=== PATIENT | female | born 1980 | race Caucasian/White ===

== ENCOUNTER 2023-11-07 05:39 | Observation (INO) ==
--- NOTE | 2023-10-28 15:13 | Anesthesiology Consultation ---
Date of Service October 28, 2023 Assessment & Plan (1) Encounter for pre-operative examination: Chart Review Chart Review: Acceptable Risk for Surgery and Patient NOT seen in Pre Admission Testing - Check test AM DOS -Infectious Disease screening: Per PAT nursing assessment on 10/21/23. No known infectious disease contacts in past 10 days or current infectious disease symptoms. No recent travel outside the country. History Surgery Operation Date: 11/07/23 07:30 Proposed Procedures p Panniculectomy - Esme Lopez MD Height/Weight Height: 5 ft 5 in Weight: 83.007 kg Allergies Allergy/AdvReac Type Severity Reaction Status Date / Time mometasone furoate AdvReac Severe NON STOP Verified 10/21/23 14:56 [From Nasonex] HEADACHES aspirin AdvReac Intermediate Gastrointestinal Verified 10/21/23 14:57 Upset diclofenac AdvReac Intermediate Diarrhea Verified 10/21/23 14:56 Medications Home Medications Medication Instructions Recorded Confirmed Last Taken nzmxbhoszn-euayqnqboqovz-dzbpwzav 1 tab PO Q4H PRN Migraine Headache 09/08/20 10/21/23 Unknown 50 mg-325 mg-40 mg tablet calcium-vitamin D2-iron tablet 1 tab PO DAILY 09/08/20 10/21/23 09/08/20 fluticasone propionate 50 2 spray intranasal HS 09/08/20 10/21/23 09/08/20 mcg/actuation nasal spray,suspension magnesium oxide 400 mg (241.3 mg 400 mg PO DAILY 09/08/20 10/21/23 09/08/20 magnesium) tablet nortriptyline 25 mg capsule 50 mg PO HS 09/08/20 10/21/23 09/07/20 vit no.95-ferrous 1 tab PO DAILY 09/08/20 10/21/23 09/08/20 fumarate 28 mg-folic acid 800 mcg tablet () promethazine 25 mg tablet 25 mg PO Q8H PRN Nausea 09/08/20 10/21/23 Unknown buspirone 10 mg tablet 10 mg PO BID 07/14/23 10/21/23 Unknown clobetasol 0.05 % scalp solution 1 applic topical DAILY 07/14/23 10/21/23 Unknown folic acid 1 mg tablet 1 mg PO DAILY 07/14/23 10/21/23 Unknown levocetirizine 5 mg tablet 5 mg PO DAILY 07/14/23 10/21/23 Unknown medroxyprogesterone 150 mg/mL 150 mg IM UD 10/21/23 10/21/23 Unknown intramuscular suspension oxycodone-acetaminophen 5 mg-325 1 tab PO Q4H PRN pain 3 days #18 10/25/23 10/25/23 Unknown mg tablet (Percocet) tabs Past Medical History Medical History Anxiety History of COVID-September 12, 2023 > home test, symptoms all resolved > mild symptoms just loss taste and smell Migraine average 2 per month Seasonal allergies Past Family History Family History Other Alzheimer disease Diabetes Hypotonic sclerotic muscular dystrophy Stroke Past Surgical History Surgical History delivery delivered x1 Hx of gastric bypass 2009 Social History Smoking Status: Never smoker Do You Dip or Chew Tobacco: No Hx Alcohol Use: Yes alcohol intake frequency: holidays/special occasions only Hx Substance Use: No substance use type: does not use Lab Results Anesthesia Preop Results Results Anesthesia Widget: WBC 3.72 K/ul (4.8-10.8) L 10/28/23 Hgb 12.3 g/dl (12.0-16.0) 10/28/23 Hct 36.9 % (37.0-47.0) L 10/28/23 Plt 304 K/uL (130-400) 10/28/23 Na 138 mmol/L (136-145) 10/28/23 K 4.0 mmol/L (3.5-5.1) 10/28/23 Cl 105 mmol/L (98-107) 10/28/23 CO2 26 mmol/L (21-32) 10/28/23 BUN 11 mg/dl (6-23) 10/28/23 Creat 0.61 mg/dl (0.6-1.2) 10/28/23 Glucose Level 92 mg/dl (70-99(Fasting)) 10/28/23 PT 10.6 Seconds (9.0-12.0) 10/28/23 INR 1.0 (0.9-1.1) 10/28/23
--- OUTSIDE RECORDS SUMMARY | 2023-11-07 05:48 | External Medical Summary | Summary of Care ---
Author Name Unknown Organization [facility] Address [address] [place] [address] Phone [phone] Care Team Providers Care Check And Transfer Beader Name Role Phone Osmani Valeria Jong LE Primary Care Provider [phone] Encounter Details Date Type Department Care Team (Late st Contact Info) Description 10/28/2023 9:30 AM EDT Nurse Only Ancillary Department, [facility] [address] [place] [address] [facility], Nurse [address] [place] [address] Arrived Allergies Active Allergy Reactions Criticality Noted Date Comments Aspirin 04/17/2020 Burning in stomach Diclofenac Sodium Diarrhea 06/04/2008 Mometasone Furoate 06/14/2013 Nosebleeds and headaches documented as of this encounter (statuses as of 10/28/2023) Medications Medication Sig Dispensed Refills Start Date End Date Status FORMULA 28-0.8 MG PO TABS twice a day 0 Active CALCIUM CITRATE PLUS PO TABS two tablets twice a day 0 Active Promethazine HCl 25 MG Oral Tablet (PHENERGAN)Indication s:Migraine with aura and without status migrainosus, not intractable Take 1 Tab by mouth every 8 hours as needed for Nausea. 20 Tab 1 04/17/2020 Active Clobetasol Propionate 0.05 % External Cream (Temovate)Indications :Bumps on skin Apply topically to affected area 2 times a day . Start 3 days before menses due - cover with hot compresses and set for 10 minutes. 60 g 1 04/27/2022 Active Levocetirizine Dihydrochloride 5 MG Oral TabletIndications:Cou gh TAKE 1 TABLET BY MOUTH EVERYDAY AT BEDTIME 90 Tablet 3 11/18/2022 Active busPIRone HCl 10 MG Oral Tablet (Buspar)Indications:G AD (generalized anxiety disorder) One half to one whole tab by mouth up to 4 times a day as needed for anxiety. 20 Tablet 0 12/23/2022 Active Fluticasone Propionate 50 MCG/ACT Nasal Suspension (Flonase)Indications: Post-nasal drip ADMINISTER 2 SPRAYS INTO EACH NOSTRIL DAILY. 48 mL 3 02/28/2023 Active Nortriptyline HCl 25 MG Oral Capsule (Pamelor)Indications: Migraine with aura and without status migrainosus, not intractable TAKE 2 CAPSULES BY MOUTH AT BEDTIME 180 Capsule 2 02/28/2023 Active Jaleesa 0.25-35 MG-MCG Oral Tablet (Norgestimate-Eth Estradiol)Indications :Irregular menses TAKE 1 TABLET BY MOUTH EVERY DAY IN THE MORNING 84 Tablet 1 03/15/2023 Active Magnesium Oxide 400 MG Oral TabletIndications:Pawan jim with aura and without status migrainosus, not intractable,[facility] Take 1 Tablet by mouth in the morning. 90 Tablet 3 05/05/2023 Active Folic Acid 1 MG Oral TabletIndications:Bradford r loss TAKE 1 TABLET BY MOUTH EVERY DAY IN THE MORNING 90 Tablet 3 05/29/2023 Active Ytmgnjliye-LVVB-Ftpqg ine 50-325-40 MG Oral Tablet (Fioricet) TAKE 1 TAB BY MOUTH EVERY 4 HOURS NEEDED FOR PAIN, MODERATE. *INSURANCE COVERS 20 TABS/34 DAYS* 20 Tablet 2 10/20/2023 Active Hospital, Clinic, or Other Facility Administered Medication Ordered Dose Route Frequency Start Date End Date Status medroxyPROGESTERone (contracep) (Depo-Provera) inj 150 mgIndications:Depo-Provera contraceptive status 150 mg IM [id number] 05/05/2023 04/29/2024 Acti ve vitamin b-12 (Cyanocobalamin) inj 1,000 mcgIndications:Intestinal postoperative nonabsorption 1000 mcg IM [id number] 10/28/2023 09/29/19 25 Active documented as of this encounter (statuses as of 10/28/2023) Active Problems Problem Noted Date Diagnosed Date MEDICATION USE AGREEMENT 12/16/2016 Overview: Managed by Dr. Valeria Keen. To view the Medication Usage Agreement, go to Action, Patient Files. Intestinal postoperative nonabsorption 0 Other hyperalimentation 01/13/2009 TUCKER RESEARCH OTHER*[id number] 01/13/2009 ADVANCE DIRECTIVE INFORMATION 09/17/2008 Overview: No, Advance Directive brochure given to patient. 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 Morbid obesity, BMI not known 05/13/2008 10/06/2009 Overview: Per Obesity Taxonomy Migraine 12/16/2016 Morbid Obesity, BMI not known 10/06/2009 Overview: Per Obesity Taxonomy OTHER 12/13/2016 Overview: Ocular albinism, legally blind documented as of this encounter (statuses as of 10/28/2023) Immunizations Name Administration Dates Next Due COVID-19 mRNA, LNP-s, No Pre serve, 2-Dose Series (Moderna) 12/25/2020,11/27/2020 PPD 03/25/2015 Seasonal Influenza, PF, 6 M & above, IM , (FluLaval or Fluzone) 04/27/2022,04/17/2020,04/18/2019,2017 Seasonal Influenza, Quadriva lent, No Preserve, IM 04/23/2021,03/23/2016 Seasonal Influenza, Split, I IV3, With Preserve, Inj 03/25/2015,03/13/2014 TD, Preservative Free 01/10/2020 TDAP (age 11 and older)(Adacel) 01/08/2010 documented as of this encounter Social History Tobacco Use Types Packs/Day Years Used Date Smoking Tobacco: Former Cigarettes Smokeless Tobacco: Never Alcohol Use Standard Drinks/Week Comments Not Currently 0 (1 standard drink = 0.6 oz pur e alcohol) ocassionally PHQ-2 Answer Date Recorded PHQ-2 Score 0 02/20/2019 Hunger Vital Sign Answer Date Recorded Within the past 12 months, y ou worried that your food would run out before you got the money to buy more. Never true 01/25/20 23 Within the past 12 months, t he food you bought just didn't last and you didn't have money to get more. Never true 01/24/2023 Sex and Gender Information Value Date Recorded Sex Assigned at Female 10/09/2022 7:33 PM EDT Gender Identity Female 10/09/2022 7:33 PM EDT Sexual Orientation Straight 10/09/2022 7: 33 PM EDT Job Start Date Occupation Industry Not on file Not on file Not on file documented as of this encounter Progress Notes * Piper Joseph LPN - 10/28/2023 9:16 AM EDT Pre-Administration Time Out Procedure Performed: Yes Patient Identified (Ask Name/Date of ): Yes Does the patient have a fever greater than 101 degrees today? No Patient allergic to latex? No Has the patient ever fainted after receiving an injection? No VFC Stock: No Injection(s) verified: Yes, Injection Name: DEPO and B-12 Verified Side and Site: Yes Verified Shot(s) with Parent(s)/Patient: Yes documented in this encounter Plan of Treatment Health Maintenance Due Date Last Done Comments Hepatitis B (1 of 3 - 19+ 3-dose series) 2001 Depression Screening 02/21/2020 02/20/2019 COVID-19 Vaccine (3 - 2022-24 season) 2023 12/25/2020, 11/27/2020 Influenza Vaccine (FLU shot) (Season Ended) 2024 04/27/2022, 04/23/2021, 04/17/2020, Additional history exists Mammogram 03/15/2024 03/15/2023, 03/15/2023 Diabetes Screening 10/12/2025 10/12/2022, 0 10/21/2021, 10/21/2021, Additional history exists Pap Smear 05/05/2026 05/05/2023, 01/09, 02/20/2018, Additional history exists Cervical Cancer Screening 05/05/2028 HPV/Co-Test 05/05/2028 05/05/2023 Lipid Panel 05/13/2028 05/13/2023, 01/09, 12/27/2013, Additional history exists DTaP,Tdap,and Td Vaccines (3 - Td or Tdap) 01/09/2030 01/10/2020, 01/08/2010 GARDASIL-HPV IMMUNIZATION SERIES Aged Out No longer eligible based on patient's age to complete this topic MENINGOCOCCAL (MENACTRA/MENVEO) Aged Out No longer eligible based on patient's age to complete this topic Pneumococcal Vaccine: Pediatrics (0 to 5 Years) and At-Risk Patients (6 to 64 Years) Aged Out No longer eligible based on patient's age to complete this topic documented as of this encounter Medical Devices Not on filedocumented as of this encounter Visit Diagnoses Diagnosis 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 B12 deficiency Other B-complex deficiencies documented in this encounter Administered Medications Active Administered Medications - up to 3 most recent administrations Medication Order MAR Action Action Date Dose Rate Site medroxyPROGESTERone (contracep) (Depo-Provera) inj 150 mg 150 mg, Intramuscular, [id number], 4 doses, First dose on Chapis 05/05/23 at 1200, Last dose on 01/30/24 at 1200 Given 10/28/2023 9:15 AM EDT 150 mg Dorsogluteal Right Given 08/05/2023 9:59 AM EST 150 mg Do rsogluteal Left Given 05/13/2023 10:40 AM EDT 150 mg D orsogluteal Left vitamin b-12 (Cyanocobalamin) inj 1,000 mcg 1,000 mcg, Intramuscular, [id number], First dose on Tue10/28/23 at 0945, Last dose on Tue08/31/24 at 0945, For 12 doses Given 10/28/2023 9:14 AM EDT 1,000 mcg Deltoid Right Upper documented in this encounter Advance Directives Latest Code Status on File Code Status Date Activated Date Inactivated Comments Full Code 04/10/2010 12:22 PM 04/11/2010 9:48 PM This order reflects the patients wishes and were consensually agreed upon. Code Status History Code Status Date Activated Date Inactivated Comments Full Code 04/10/2010 7:28 AM 04/10/2010 12:22 PM This order reflects the patients wishes and were consensually agreed upon. Care Teams Check And Transfer Beader Relationship Specialty Start Date End Date Valeria Keen DO [address] [place] [address] PCP - General Family Medicine 01/18/12 documented as of this encounter
[2023-11-07] MEDS: LR 15ML/HR IV SCH (06:34)
[2023-11-07] MEDS ORDERED: ePHEDrine sulfate 50 MG/ML AMP IV PRN ×2 (06:45→10:58)
[2023-11-07] MEDS ORDERED: ROCURONIUM BROMIDE 10 MG/ML 5 ML VIAL IV ONE (06:45)
[2023-11-07] MEDS ORDERED: ONDANSETRON INJ 2 MG/ML 2 ML VIAL IV PRN (06:45)
[2023-11-07] MEDS ORDERED: PROPOFOL IV EMULSION 10 MG/ML 20 ML VIAL IV ONE (06:45)
[2023-11-07] MEDS ORDERED: ATROPINE SULFATE 0.1 MG/ML 10ML SYR IV PRN ×2 (06:45→10:58)
[2023-11-07] MEDS ORDERED: ONDANSETRON INJ 2 MG/ML 2 ML VIAL ONE (06:45)
[2023-11-07] MEDS ORDERED: fentaNYL citrate PF 100 MCG/2 ML VIAL IV PRN (06:45)
[2023-11-07] MEDS ORDERED: MIDAZOLAM HCL 1 MG/ML 2ML VIAL ONE (06:45)
--- NOTE | 2023-11-07 06:45 | History & Physical Bridge Note ---
Date of Service November 07, 2023 History & Physical Bridge Note I have examined the patient, reviewed the History & Physical and in the interval since the performance of the History & Physical I have noted the following changes of clinical significance: no changes noted
[2023-11-07] MEDS ORDERED: fentaNYL citrate PF 100 MCG/2 ML VIAL ONE (06:46)
[2023-11-07] MEDS ORDERED: SUGAMMADEX SODIUM 200 MG/2 ML VIAL IV ONE (06:46)
[2023-11-07] MEDS: ceFAZolin 2000MG 2,000 MG/15 ML SYR IV SCH ×2 (07:55→16:54)
[2023-11-07] MEDS: TRANEXAMIC ACID 1,000 MG **IV Intra-op IV SCH (08:05)
[2023-11-07] MEDS ORDERED: HYDROmorphone INJ 1 MG/ML SYRINGE ONE ×2 (08:08→09:15)
[2023-11-07] MEDS: LIDOCAINE 1% LOCAL 20 ML VIAL ONE (08:49)
[2023-11-07] MEDS: EpINEphrine HCL INJ 1 MG/ML 1ML SYRINGE IR ONE (08:49)
[2023-11-07] MEDS: LIDOCAINE 1%/EPINEPHRINE 1:100,000 20 ML VIAL ONE (09:28)
[2023-11-07] MEDS: BUPIVACAINE 0.25% PF 30 ML VIAL ONE (09:28)
[2023-11-07] MEDS ORDERED: ACETAMINOPHEN 1000 MG/100 ML IV IV ONE (09:37)
[2023-11-07] MEDS: TRANEXAMIC ACID 1,000 MG **IV Pre-op IV SCH (09:38)
--- NOTE | 2023-11-07 10:31 | Operative Report ---
PG Post Operative Report Pre & Post Diagnosis Operation Date: 11/07/23 07:30 Pre-Op Diagnosis: Abdominal Pannus Post-Op Diagnosis: Abdominal Pannus I identified the patient and participated in the time-out.: Yes Procedure Operation Date: 11/07/23 07:30 Actual Procedures p Panniculectomy(Not Applicable) - Esme Lopez MD Surgeon Esme Lopez MD Air Brake Adjuster Delores Del Rosario PA-C Estimated Blood Loss 15 Findings See Below small fascial weakness right abdomen at lateral aspect of pfannenstiel incision (1 cm) Specimens abdominal pannus Drains [id number] Anesthesia Type General Complications none Indications abdominal pannus, intertrigo Description of Procedure Risks, benefits, and alternatives of the procedure were explained to the patient who agreed and signed consent. She was identified and marked in the preoperative holding area. She was brought to the operating room where she was positioned supine and placed under general anesthesia without incident. Amado catheter was placed. Surgical site was prepped and draped sterilely. A time-out procedure was performed. I reassessed my markings which included a lower horizontal abdominal incision with the midportion 9 cm above the vulvar commissure at the pubic hairline. Incision was marked bilaterally to the ASIS. I began by injecting 1% lidocaine with epinephrine along the planned incision. The lower abdominal incision was made using a 15-blade scalpel to incise epidermis and superficial dermis followed by electrocautery to incise deep dermis, subcutaneous fat, Loly's fascia down to the abdominal wall. Care was taken to bevel superiorly in order to avoid encountering the inguinal region. Electrocautery was used to elevate the anterior abdominal skin flap ligating the perforating vessels with 3-0 Vicryl ties and electrocautery. Dissection was carried up to the level of the umbilicus in the midline. At this point, a 15-blade scalpel was used to circumscribe the umbilicus. A vertical midline incision was then made from the incision to the umbilicus and divided in the midline using electrocautery. The umbilicus was then dissected out using electrocautery down to abdominal wall. The umbilical stalk appeared viable throughout the procedure. A small approximately 1 cm fascial weakness but without herniation of abdominal contents was noted in the right lower quadrant at the lateral aspect of the fascial scar from her was noted and imbricated using 2 figure of 8 0-Ethibond sutures. In order to facilitate inset of the umbilicus, dissection was continued for about an additional 8 cm superior to the umbilicus. At this point, the bed was flexed and the mid portion of the superior skin flap was inset above the mons pubis using 2-0 Vicryl suture. Skin flaps were marked for excision. A 15-blade scalpel was used to make these incisions and the incision was deepened through dermis, subcutaneous fat, Loly's fat using electrocautery. A 15 Egyptian Nayan drains were placed in the wound bed and brought out through a separate stab incision in the mons pubis. The drains were sutured into place using 3-0 nylon. Prior to closure, a total of 20 mL of 0.25% Marcaine plain were injected into the fascia as well as along the incisions. The umbilicus was brought out through an inverted triangular incision in the abdominal wall. This was performed using a 15-blade scalpel. Wound closure was then begun lateral to medial using 2-0 Vicryl Loly's fascia sutures, 2-0 Vicryl deep dermal sutures, 2-0 PDO running superficial Quill suture, 3-0 Monocryl running subcuticular suture. Umbilicus was brought out through the inverted triangle incision and was sutured into place using 4-0 chromic half buried horizontal mattress sutures. The umbilicus was dressed using Xeroform and the incision was dressed using Dermabond Prineo followed by dry dressings and an abdominal binder. The procedure was tolerated well. The patient was awakened and transferred to recovery in satisfactory condition. Delores Del Rosario PA-C was present and scrubbed throughout the entire procedure and was instrumental in providing retraction of the pannus and assisting in simultaneous wound closure. I attest to the content of the Intraoperative Record and any orders documented therein. Any exceptions are noted below.
--- NOTE | 2023-11-07 10:32 | Post Operative Brief Note ---
PG Immediate Post Op with CF Date of Surgery November 07, 2023 Pre & Post Diagnosis Operation Date: 11/07/23 07:30 Pre-Op Diagnosis: Abdominal Pannus Post-Op Diagnosis: Abdominal Pannus I identified the patient and participated in the time-out.: Yes Procedure Operation Date: 11/07/23 07:30 Actual Procedures p Panniculectomy(Not Applicable) - Esme Lopez MD Surgeon Esme Lopez MD Teachers Aide Delores Del Rosario PA-C Estimated Blood Loss 15 Findings Consistent with Post-Op Diagnosis Specimens Specimen Description: A. Pannus Drains Amado Catheter and Christopher-Downs Drain
[2023-11-07] MEDS ORDERED: MoRPHine SULFATE 2 MG/ML CARP IV PRN (10:41)
[2023-11-07] MEDS ORDERED: LORazepam 0.5 MG TAB PO PRN (10:41)
[2023-11-07] MEDS ORDERED: diphenhydrAMINE 50 MG/ML VIAL IV PRN (10:41)
[2023-11-07] MEDS ORDERED: PROMETHAZINE HCL 12.5 MG in SODIUM CHLORIDE 0.9% 50 ML IV PRN (10:41)
[2023-11-07] MEDS ORDERED: MoRPHine SULFATE 4 MG/ML 1 ML CARP\\VIAL IV PRN (10:41)
[2023-11-07] MEDS ORDERED: ACETAMINOPHEN 325 MG TAB PO PRN (10:41)
[2023-11-07] MEDS ORDERED: diphenhydrAMINE Capsule 25 MG CAP PO PRN (10:41)
[2023-11-07] MEDS ORDERED: PROMETHAZINE HCL 6.25 MG in SODIUM CHLORIDE 0.9% 50 ML IV PRN (10:58)
[2023-11-07] MEDS: ONDANSETRON INJ 2 MG/ML 2 ML VIAL IV PRN ×2 (11:00→17:45)
--- NOTE | 2023-11-07 11:32 | Anesthesiology Progress Note ---
Date of Service November 07, 2023 Anesthesia Post Procedure Vital Signs Vital Signs: Temp Pulse Pulse Resp BP Pulse Ox O2 Del Method 11/07/23 11:20 97.5 F L 79 20 99/69 L 100 Room Air 11/07/23 11:10 97.5 F L 88 19 105/83 99 Room Air 11/07/23 11:00 93 H 18 118/82 99 Room Air 11/07/23 10:50 94 H 12 108/75 100 Room Air 11/07/23 10:41 96.8 F L 105 H 18 109/70 100 Room Air 11/07/23 06:17 Room Air 11/07/23 06:17 98.1 F 95 H 20 112/61 100 Room Air Transfer of Care Handoff Completed per policy Notes Mental Status: alert / awake / arousable and participated in evaluation Patient Amnestic to Procedure: Yes Nausea / Vomiting: improving with treatment Pain: adequately controlled Airway Patency, RR, SpO2: stable & adequate BP & HR: stable & adequate Hydration State: stable & adequate Anesthetic Complications: no major complications apparent and Pt Satisfied with anesthetic care
[2023-11-07] MEDS: D5W AND 1/2NSS 1,000 ML IV SCH (12:45)
[2023-11-07] MEDS: oxyCODONE/ACETAMINOPHEN 5mg/325mg TAB PO PRN (15:22)
[2023-11-07] MEDS: busPIRone 5 MG TAB PO SCH (21:01)
[2023-11-07] MEDS: NORTRIPTYLINE HCL 25 MG CAP PO SCH (21:01)
[2023-11-07] MEDS: FLUTICASONE PROPIONATE NA SPR 16 GM BTL SCH (21:02)
[2023-11-08] MEDS: oxyCODONE/ACETAMINOPHEN 5mg/325mg TAB PO PRN (04:11)
[2023-11-08] MEDS: MULTIVITAMIN TAB PO SCH (08:00)
[2023-11-08] MEDS: CETIRIZINE HCL 10 MG TABLET PO SCH (08:00)
--- NOTE | 2023-11-08 10:01 | Surgery Progress Note ---
Date of Service November 08, 2023 Assessment & Plan (1) S/P panniculectomy: Plan: Zeenat is POD #1- she is doing great! Her pain is well-controlled. She is tolerating a regular diet. She denies any nausea or vomiting this morning. She did have some post-op nausea and vomiting yesterday, but that has resolved. She is ok for discharge to home today. She is aware that she is to sleep in an elevated position, NEVER flat. She will continue to monitor and record drain output amounts. She is to remain in binder and keep surgical dressings in place. She has a follow-up appointment for tomorrow in the office. Return precautions reviewed and all questions answered. Admission and Anticipated Discharge Date Admission Date: November 07, 2023 Flor Epperson is 1 day s/p Panniculectomy. She is doing wonderful this morning! She reports that her pain is well-controlled with PRN pain medication. She has been able to tolerate her regular diet without issue. She did have some post-op nausea and vomiting yesterday, but that has fortunately resolved. She does have at home Phenergan if needed. She denies any concerns or complaints. Review of Systems Constitutional: as per Subjective / HPI; no fever and no chills Respiratory: no cough and no dyspnea Cardiovascular: no chest pain and no calf pain Physical Exam Physical Exam: On physical exam- drains x [address] with serosang output. No evidence of clots in the drain. No evidence of hematoma formation. Binder opened and dressing peeled back to view incision, which is intact. No evidence of infection on exam. Constitutional: WD/WN, vitals as above Respiratory: normal respiratory effort; no respiratory distress and no labored breathing Psychiatric: A+Ox3, euthymic affect Results & Data Vital Signs (Past 12 Hours) Vital Signs Temp Pulse Resp BP BP Pulse Ox O2 Del Method 11/08/23 07:32 36.8 C 87 16 89/60 L 96 Room Air 11/08/23 04:22 36.4 C L 85 18 97/63 L 98 Room Air 11/08/23 02:11 36.8 C 82 16 88/60 L 97 Room Air 11/07/23 23:16 36.7 C 88 16 87/59 L 97 Room Air PG Care Time/CCT Total # of Minutes Spent Total Time Spent with Patient: Total time spent is greater than 50% in coordination of care (as documented) at patient's floor/unit and/or counseling patient: Coding Level of Care Code 28003 Post Operative Follow-Up Diagnoses S/P panniculectomy Z98.890
--- NOTE | 2023-11-09 14:32 | Discharge Summary ---
Date of Service November 09, 2023 Admission HPI Per Admitting Provider Patient with history of weight loss, significant abdominal pannus. Admission Exam Per Admitting Provider abdominal pannus Principal Diagnosis abdominal pannus Discharge Exam On physical exam- drains x [address] with serosang output. No evidence of clots in the drain. No evidence of hematoma formation. Binder opened and dressing peeled back to view incision, which is intact. No evidence of infection on exam. Constitutional WD/WN, vitals as above Respiratory normal respiratory effort; no respiratory distress and no labored breathing Psychiatric A+Ox3, euthymic affect Discharge Data Allergies Allergy/AdvReac Type Severity Reaction Status Date / Time mometasone furoate AdvReac Severe NON STOP Verified 11/07/23 06:13 [From Nasonex] HEADACHES aspirin AdvReac Intermediate Gastrointestinal Verified 11/07/23 06:13 Upset diclofenac AdvReac Intermediate Diarrhea Verified 11/07/23 06:13 Procedures Performed Operation Date: 11/07/23 07:30 Actual Procedures p Panniculectomy(Not Applicable) - Esme Lopez MD Hospital Course (1) S/P panniculectomy: Patient presented to [facility] with history of abdominal pannus. She was taken to the OR and underwent panniculectomy. There were no intraoperative complications. She was taken to recovery and transferred to med/surg for observation. On POD#1, she was feeling well. She was tolerating a regular diet and ambulating. She was able to void after catheter was removed. On exam, her vitals were stable. Her incisions were CDI. Her drains had appropriate output. She was discharged home with instructions to follow-up in the office in one day. Total Time Total Time Spent Total Time Spent (In Minutes): 20 Total Time Includes: Examination of the Patient and Communication With Other Providers Discharge Plan Discharge Items Patient Disposition: Home - Self-Care Reason For Visit: Abdominal Pannus Discharge Diagnosis: Abdominal Pannus Activity: As commented below Non-emergency contact: Surgeon Call non-emergency contact if: you have any medication questions, your pain is not controlled, your temperature is above 101.5, your wound has increased redness and your wound has increased drainage Follow-up/Referrals: Esme Lopez MD [Physician] - 11/09/23 10:00 am Kopinski,Valeria L., DO [Primary Care Provider] - Diet: Regular Addtl Attending Provider Instructions: ACTIVITY RECOMMENDATIONS: __Normal activities X__No bending, lifting or straining __No driving X__Driving allowed when you are off pain medications X__Walking permitted __You should have help at home for ___ days DRESSINGS: __No dressings required X__Keep dressings dry/in place until first office visit __Remove dressings ___ and leave dressings off __Apply ice ___ days __Remove dressings and reapply garment __Apply antibiotic ointment (Bacitracin, Neosporin, etc) to wounds 3-4 times/day for 10 days BATHING: X__Keep dressings dry X__Sponge bathing permitted __Showering permitted X__No swimming, hot tubs or soaking in a tub MEDICATIONS: Resume previous medications unless instructed otherwise by your surgeon. _X_Do not use aspirin, Motrin, Advil or Ibuprofen as these may promote bleeding. Please use Tylenol. _X_Prescription(s) provided: Prescription for post-op pain medication provided at your last office visit. Please use as prescribed. OTHER INSTRUCTIONS: _X_Record drain output 2-3 times per day SPECIAL CARE INSTRUCTIONS: * Please do not lay flat, keep your upper body elevated with multiple pillows. If you have recliner at home, you may prefer to sleep in that while you recover. * It is normal to have a mild fever after surgery. If your temperature is higher than 101.5 degrees F, please call the office at [phone]. * Constipation is a typical side effect of pain medication. An xxyv-rvr-zzkjqaa stool softener will help relieve this. * Leaking around surgical drains may occur and should not cause concern. Sometimes these drains become clogged. If this happens, remove the bulb and milk the clot out of the tube, then replace the bulb. * Drainage from wounds after liposuction is normal and should be expected. Garments will become soiled. You should protect furniture and bedding. This drainage should mostly subside within 2-3 days. Leave garments in place unless instructed to remove them. * If you have unusual drainage from a wound or are concerned you have an infection or have any questions or concerns, please call the office at [phone]. FOLLOW UP VISIT: If not already scheduled, please call the office, , when you return home after surgery to schedule an appointment to be seen in __1_ days. Pending Studies at Discharge: No Stand-Alone Forms: My [facility], Smoking Cessation Medications and DC Order Prescriptions: Continued oxycodone-acetaminophen [Percocet] 5-325 mg tablet 1 tab PO Q4H PRN (Reason: pain) 3 Days Qty: 18 0RF Rx Instructions: Initial therapy. buspirone 10 mg tablet 10 mg PO BID levocetirizine 5 mg tablet 5 mg PO DAILY clobetasol 0.05 % solution 1 applic topical DAILY bfppmlnkcc-hoibjmdgbwgik-itkq 50-325-40 mg tablet 1 tab PO Q4H PRN (Reason: Migraine Headache) nortriptyline 25 mg capsule 50 mg PO HS promethazine 25 mg tablet 25 mg PO Q8H PRN (Reason: Nausea) fluticasone propionate 50 mcg/actuation spray,suspension 2 spray INTRANASAL HS Held folic acid 1 mg tablet 1 mg PO DAILY Hold Instructions: Resume on 11/21/23. magnesium oxide 400 mg (241.3 mg magnesium) tablet 400 mg PO DAILY Hold Instructions: Resume on 11/21/23. PN cmb#95-ferrous fumarate-FA [] 28 mg iron- 800 mcg Tablet 1 tab PO DAILY Hold Instructions: Resume on 11/21/23. calcium-vitamin D2-iron Tablet 1 tab PO DAILY Hold Instructions: Resume on 11/21/23. medroxyprogesterone 150 mg/mL Suspension 150 mg IM UD Hold Instructions: Resume on 11/21/23. Patient Comments: next dose 10/28/23 Discharge Orders: Discharge Order (Routine); Ordered 11/08/23 Ordered By: Kristina Mann Admission Data Admit Date/Time: 11/07/23 10:44 Attending Provider: Esme Lopez Admit Provider: Esme Lopez Primary Care Provider: Valeria Keen Other Interventions: Discharge Summary Assessment (RN) Last Done: 11/08/23 09:42 Coding Level of Care Code 62239 OBS Care - Discharge Diagnoses S/P panniculectomy Z98.890
== END 2023-11-08 17:59 | disposition home or self-care (01) ==
LOC: 3E 05:39 → ASU 05:39

== ENCOUNTER 2023-11-10 12:55 | Inpatient (IN) ==
[2023-11-10 13:35] LABS: Basophils # (auto) 0.04 K/uL (0.00-0.20); Basophils % (auto) 0.4 %; Eosinophils # (auto) 0.05 K/uL (0.00-0.50); Eosinophils % (auto) 0.5 %; Hematocrit (blood only) 38.1 % (37.0-47.0); Hemoglobin 12.6 g/dl (12.0-16.0); Immature Granulocytes # (auto) 0.04 K/uL (0.01-0.20); Immature Granulocytes % (auto) 0.4 %; Lymphocytes # (auto) 1.42 K/uL (1.20-3.40); Lymphocytes % (auto) 13.4 %; Mean Corpuscular Hemoglobin 29.3 pg (25.0-34.0); Mean Corpuscular Hgb Conc 33.1 g/dL (32.0-36.0); Mean Corpuscular Volume 88.6 fL (80.0-100.0); Mean Platelet Volume 8.9 fL (9.4-12.4); Monocytes # (auto) 0.87 K/uL (0.11-0.59); Monocytes % (auto) 8.2 %; Neutrophils # (auto) 8.14 K/uL (1.40-6.50); Neutrophils % (auto) 77.1 %; Platelet Count 285 K/uL (130-400); RDW Coefficient of Variation 12.5 % (11.5-14.5); RDW Standard Deviation 40.4 fL (36.4-46.3); White Blood Count 10.56 K/ul (4.8-10.8)
[2023-11-10 13:44] LABS: Albumin Level 3.9 gm/dl (3.4-5.0); Bilirubin,Total 0.5 mg/dl (0.2-1.0); Potassium 4.1 mmol/L (3.5-5.1)
[2023-11-10 13:50] LABS: Albumin Globulin Ratio 1.3 (0.9-2); BUN Creatinine Ratio 17.9 (10-20); Creatinine Clr Calc Pharmacy 129.1 ml/min; Est GFR (African American) 134.2 ml/min; Est GFR (Non-African American) 115.8 ml/min; Total Protein 6.9 gm/dl (6.0-8.3)
--- NOTE | 2023-11-10 16:37 | Emergency Department Note ---
Impression & Plan Bilateral pulmonary embolism, S/P panniculectomy, Pulmonary infarct ED Provider Note NAME: YVAN FIGUEROA AGE: 43 SEX: F : 1980 ARRIVES VIA: Walk-In INFORMANT: Patient, ED PROVIDER(S): Neftali Saucedo MD CHIEF COMPLAINT: Chest and shoulder pain MEDICAL DECISION MAKING: Patient presents due to concern for left-sided chest and shoulder pain. IV was established and blood work is obtained. Blood work is unremarkable. The patient's incisional site from her panniculectomy is unremarkable QUETA drains with serosanguineous fluid. Patient was ordered IV morphine and IV Zofran IV fluids and CT angiography of the chest in light of the patient's recent surgery and left-sided chest pain. Patient's blood work shows a normal white count H&H and platelet count kidney functions unremarkable. Troponin negative. Patient's CT does show concern for PEs. Patient was started on heparin. I did inform the patient of the findings. I spoke with the on-call hospitalist service Abigail Fox and the patient was admitted by Dr. Bernard. Critical Care: I have personally spent 35 minutes of critical care time in direct management of this patient. This includes bedside care, interpretation of diagnostic studies, and testing, discussion with consultants, patient, and family members, and other require inpatient management activities. This 35 minutes is in excess of all separately billable procedures. Discussion w/ other healthcare providers: Abigail Fox PA-C and Dr. Bernard Prior /Outside records reviewed: None Differential diagnosis: Cardiac ischemia, aortic dissection, pulmonary embolism, pneumothorax, pneumonia, pericarditis, myocarditis, GERD, cholecystitis, pancreatitis, musculoskeletal, as well as other pathologies were considered. Diagnostics, as interpreted by me: ECG: Normal sinus rhythm, rate 96, normal intervals, normal axis no ST elevations Cardiac monitoring: An order was placed for continuous cardiac monitoring. The monitor shows a rate of 82 with sinus rhythm. Patient was placed on pulse oximetry Medical decision rules: None Imaging studies: I informally interpreted the patient's CT of the chest shows left-sided pleural effusion with formal report to follow. HPI: Patient presents due to concern for left-sided shoulder blade and chest pain. Patient states that her symptoms began around 9:30 PM last evening. Patient states it was causing difficulty with her breathing. Patient states that she did call her son who encouraged her to call an ambulance but she denied it is decided not to. The patient did not take anything for pain. The patient does feel more restricted today but that the pain has slightly improved. Patient does complain of a tenderness to the left upper chest and shoulder area. Patient did have a recent panniculectomy completed by Dr. Lopez on Tuesday. The patient did have a brief overnight stay was discharged and had a postop wound care check yesterday which was without issue. Patient denies any prior history of heart or lung disease. No cough. Patient denies any bloody sputum. No recent prolonged car plane travel no history of DVT and the patient denies any leg swelling. The patient did have the procedure performed as the patient did have extreme weight loss and had excessive abdominal tissue. Patient is left-hand dominant but denies any recent overuse or trauma to the left upper extremity and no similar pain with range of motion left shoulder arm PAST MEDICAL HISTORY: See Below PAST SURGICAL HISTORY: See Below SOCIAL HISTORY: See Below HOME MEDICATIONS: See Below ALLERGIES: See Below VITALS: See Below PHYSICAL EXAMINATION: GENERAL: NAD, non-toxic. Wearing glasses. EYE EXAM: Normal conjunctiva. PERRL, no anisocoria and EOM's grossly intact w/o pain. OROPHARYNX: Moist mucus membranes, grossly normal dentition. NECK: Trachea midline, no stridor. LUNGS: Clear to auscultation. Normal chest wall mechanics. HEART: NSR, no MRG. ABDOMEN: Abdomen soft, lower abdominal incisional site noted across almost the entirety of the lower abdomen, no fluctuance drainage or swelling, non-tender, no masses, no rebound or guarding. BACK: No CVA TTP. SKIN: No rashes and no bruising. UPPER EXTREMITIES: Upper extremities are grossly normal. LOWER EXTREMITIES: Grossly normal, no edema. Negative Homans' sign bilaterally. NEURO EXAM: A&O x3, cranial nerves II-XII grossly intact, normal speech, moves all 4 extremities. Past Med/Surg History Medical History Seasonal allergies Migraine average 2 per month Anxiety History of COVID-19 September 12, 2023 > home test, symptoms all resolved > mild symptoms just loss taste and smell Surgical History delivery delivered x1 Hx of gastric bypass 2010 Family History Other Alzheimer disease Diabetes Hypotonic sclerotic muscular dystrophy Stroke Social History Smoking Status: Never smoker Tobacco Type: Cigarettes Second Hand Exposure: Yes (as kid); Do You Dip or Chew Tobacco: No; Hx Alcohol Use: Yes Alcohol type: beer and wine Hx Substance Use: No Preferred Language: Korean Communication Ability: Effective Milk Hauler Required: No Beliefs That Will Affect Care: None Current Living Situation: Family Other Information That Helps Us Care for You: No Feels Safe at Home: Yes Safety Concerns: Feels Safe At This Time Assistive Devices: None Allergies Allergies Allergy/AdvReac Type Severity Reaction Status Date / Time mometasone furoate AdvReac Severe NON STOP Verified 11/10/23 17:37 [From Nasonex] HEADACHES aspirin AdvReac Intermediate Gastrointestinal Verified 11/10/23 17:37 Upset diclofenac AdvReac Intermediate Diarrhea Verified 11/10/23 17:37 Home Meds Home Medications Medication Instructions Recorded Confirmed ypseyffpem-mtbuetbqjenly-lnupwagu 1 tab PO Q4H PRN Migraine Headache 09/08/20 11/10/23 50 mg-325 mg-40 mg tablet calcium-vitamin D2-iron tablet 0 tab PO DAILY 09/08/20 11/10/23 fluticasone propionate 50 2 spray intranasal HS 09/08/20 11/10/23 mcg/actuation nasal spray,suspension magnesium oxide 400 mg (241.3 mg 400 mg PO DAILY 09/08/20 11/10/23 magnesium) tablet nortriptyline 25 mg capsule 25 mg PO HS 09/08/20 11/10/23 vit no.95-ferrous 1 tab PO DAILY 09/08/20 11/10/23 fumarate 28 mg-folic acid 800 mcg tablet () folic acid 1 mg tablet 1 mg PO DAILY 07/14/23 11/10/23 levocetirizine 5 mg tablet 5 mg PO HS 07/14/23 11/10/23 medroxyprogesterone 150 mg/mL 0 mg IM UD 10/21/23 11/10/23 intramuscular suspension Previous Rx's Medication Instructions Recorded oxycodone-acetaminophen 5 mg-325 1 tab PO Q4H PRN pain 3 days #18 10/31/23 mg tablet (Percocet) tabs Results & Data (ED) Vital Signs Vital Signs - 24 hr 11/10/23 13:00 11/10/23 16:05 11/10/23 19:00 Temperature 37 C Temperature Source Temporal Artery Scan Pulse Rate 96 H Pulse Rate [Apical] 88 80 Respiratory Rate 18 18 20 Respiratory Effort / Characteristics Non-Labored Spontaneous Respiratory Depth Normal Blood Pressure 119/78 Blood Pressure [Right Arm] 99/56 L 129/83 Blood Pressure Mean 91 Blood Pressure Mean [Right Arm] 70 98 Pulse Oximetry 99 100 98 Oxygen Delivery Method Room Air Room Air Room Air Sepsis Recent Fever Within 48 Hours No Sepsis New/Unexplained Change in Mental Status No Sepsis Action Taken by Nursing No Action Required Home Medications Current Medication List: was personally reviewed by me Laboratory Data Attestation: I reviewed the patient's lab results. 11/10/23 13:20 11/10/23 13:20 Lab Results 11/10/23 Range/Units 13:20 WBC 10.56 (4.8-10.8) K/ul RBC 4.30 (4.20-5.40) M/uL Hgb 12.6 (12.0-16.0) g/dl Hct 38.1 (37.0-47.0) % MCV 88.6 (80.0-100.0) fL MCH 29.3 (25.0-34.0) pg MCHC 33.1 (32.0-36.0) g/dL RDW Std Deviation 40.4 (36.4-46.3) fL RDW Coeff of Baltazar 12.5 (11.5-14.5) % Plt Count 285 (130-400) K/uL MPV 8.9 L (9.4-12.4) fL Immature Gran % (Auto) 0.4 % Neut % (Auto) 77.1 % Lymph % (Auto) 13.4 % [place] % (Auto) 8.2 % Eos % (Auto) 0.5 % Baso % (Auto) 0.4 % Neut # (Auto) 8.14 H (1.40-6.50) K/uL Lymph # (Auto) 1.42 (1.20-3.40) K/uL [place] # (Auto) 0.87 H (0.11-0.59) K/uL Eos # (Auto) 0.05 (0.00-0.50) K/uL Baso # (Auto) 0.04 (0.00-0.20) K/uL Immature Gran # (Auto) 0.04 (0.01-0.20) K/uL PT 10.9 (9.0-12.0) Seconds INR 1.0 (0.9-1.1) APTT 27 (21-31) Seconds PTT Ratio 1.0 Sodium 138 (136-145) mmol/L Potassium 4.1 (3.5-5.1) mmol/L Chloride 105 (98-107) mmol/L Carbon Dioxide 26 (21-32) mmol/L Anion Gap 7 (3-11) BUN 10 (6-23) mg/dl Creatinine 0.56 L (0.6-1.2) mg/dl Est Cr Clr Drug Dosing 129.1 ml/min Est GFR ( Amer) 134.2 ml/min Est GFR (Non-Af Amer) 115.8 ml/min BUN/Creatinine Ratio 17.9 (10-20) Glucose 107 H (70-99(Fasting)) mg/dl Calcium 9.0 (8.6-10.3) mg/dl Total Bilirubin 0.5 (0.2-1.0) mg/dl AST 18 (13-39) U/L ALT 22 (7-52) U/L Alkaline Phosphatase 63 (34-104) U/L Troponin I High Sens 4.1 (0-14) pg/ml Total Protein 6.9 (6.0-8.3) gm/dl Albumin 3.9 (3.4-5.0) gm/dl Globulin 3.0 (2.5-4.0) gm/dl Albumin/Globulin Ratio 1.3 (0.9-2) Administered Medications Cetirizine HCl (Cetirizine Hcl 10 Mg Tablet) 10 mg PO [facility] Stop: 12/10/23 21:29 Last Admin: 11/10/23 22:19 Dose: 10 mg Documented By: KJB Fluticasone Propionate (Fluticasone Propionate Na Spr 16 Gm Btl) 2 sprays NA [facility] Stop: 12/10/23 21:20 Last Admin: 11/10/23 22:20 Dose: 2 sprays Documented By: KOKO Heparin Sodium/Dextrose (Heparin Sodium/Dextrose) 25,000 units in 500 mls @ 22 mls/hr IV .[id number] [facility]; Protocol Stop: 12/10/23 18:44 Last Admin: 11/10/23 19:20 Dose: 1,100 units/hr, 22 mls/hr Documented By: KIYA Co-signed By: BERT Miscellaneous (Remove Lidoderm Patch) 1 each N/A DAILY@2100 [facility] Stop: 12/10/23 21:20 Last Admin: 11/10/23 22:19 Dose: Not Given Documented By: KOKO Nortriptyline HCl (Nortriptyline Hcl 25 Mg Cap) 25 mg PO HS [facility] Stop: 12/10/23 21:20 Last Admin: 11/10/23 22:19 Dose: 25 mg Documented By: KOKO Discontinued Medications Heparin Sodium/Dextrose (Heparin Iv Adult Wt-Based Standard *No* Initial Bolus Protocol) 1 each IV ONE STA; Protocol Stop: 11/10/23 18:17 Last Admin: 11/10/23 19:24 Dose: Not Given Documented By: KIYA Sodium Chloride (Nss) 500 mls @ 999 mls/hr IV .Q31M ONE Stop: 11/10/23 17:48 Last Infusion: 11/10/23 17:56 Dose: Infused Documented By: Admin: 11/10/23 17:24 Dose: 999 mls/hr Documented By: KIYA Ioversol (Optiray 320 125ml) 118 ml IV ONCE ONE Stop: 11/10/23 17:36 Last Admin: 11/10/23 17:35 Dose: 118 ml Documented By: JAMES Ketorolac Tromethamine (Ketorolac Tromethamine 15 Mg/Ml Vial) 15 mg IV NOW ONE Stop: 11/10/23 19:57 Last Admin: 11/10/23 20:15 Dose: 15 mg Documented By: SANTOS Morphine Sulfate (Morphine Sulfate 4 Mg/Ml 1 Ml Carp\Vial) 4 mg IV NOW STA Stop: 11/10/23 17:19 Last Admin: 11/10/23 17:25 Dose: 4 mg Documented By: KIYA Ondansetron HCl (Ondansetron Inj 2 Mg/Ml 2 Ml Vial) 4 mg IV NOW STA Stop: 11/10/23 17:19 Last Admin: 11/10/23 17:24 Dose: 4 mg Documented By: NRB Imaging Data Radiologist's Impression: Chest CTA 11/10/23 17:18 CHEST CTA for PULMONARY ARTERIES CT DOSE: 748.44 mGy.cm HISTORY: Shortness of breath. PE TECHNIQUE: Multiaxial CT images of the chest were performed following the intravenous administration of contrast to evaluate the pulmonary arteries. 3D/Maximal intensity projection images were also obtained. Sagittal and coronal reformations were also reviewed. A dose lowering technique was utilized adhering to the principles of ALARA. COMPARISON STUDY: None. FINDINGS: Normal caliber thoracic aorta with no evidence for a dissection. The heart is normal in size. Multiple scattered filling defects seen within the segmental and subsegmental pulmonary arteries of the bilateral upper and lower lobes consistent with acute pulmonary emboli. The main pulmonary arteries are patent. No evidence for right-sided heart strain at this time. The heart is normal in size. Trace left pleural effusion. No pericardial effusion. Normal thyroid gland. Limited views of the upper abdomen demonstrate a normal liver, spleen, and adrenal glands. Postoperative changes consistent with prior gastric bypass. There is elevation left hemidiaphragm. Normal esophagus. No mediastinal or hilar lymphadenopathy. No acute fractures. The central airways are patent. A few bibasilar linear densities favor subsegmental atelectasis. No pneumothorax. Small wedge-shaped groundglass airspace opacities within the base of the lingula and left lower lobe likely representing pulmonary infarcts. IMPRESSION: 1. Bilateral segmental/subsegmental pulmonary emboli. No evidence for right- sided heart strain. 2. Trace left pleural effusion. 3. Small wedge-shaped groundglass airspace opacities within the left lung base likely represents pulmonary infarcts. 4. Additional findings as described above. ACT 112: Negative or not required by law. Electronically signed by: Kraig Daniels M.D. 11/10/2023 6:03 PM Discharge Plan Visit Data Chief Complaint: Back Injury/Pain Stated Complaint: BACK PAIN, TROUBLE BREATHING AFTER PROCEDURE ED Provider: Neftali Saucedo Discharge Problem: Bilateral pulmonary embolism, S/P panniculectomy, Pulmonary infarct Patient Disposition: Admitted As Inpatient Discharge Instructions Interventions: ED Discharge Assessment Last Done: 11/10/23 20:38
[2023-11-10] MEDS: SODIUM CHLORIDE 0.9% 500 ML IV ONE (17:24)
[2023-11-10] MEDS: ONDANSETRON INJ 2 MG/ML 2 ML VIAL IV STA (17:24)
[2023-11-10] MEDS: MoRPHine SULFATE 4 MG/ML 1 ML CARP\\VIAL IV STA (17:25)
[2023-11-10] MEDS: OPTIRAY 320 125ml IV ONE (17:35)
--- NOTE | 2023-11-10 18:04 | CT Scan Report ---
CHEST CTA for PULMONARY ARTERIES CT DOSE: 748.44 mGy.cm HISTORY: Shortness of breath. PE TECHNIQUE: Multiaxial CT images of the chest were performed following the intravenous administration of contrast to evaluate the pulmonary arteries. 3D/Maximal intensity projection images were also obta ined. Sagittal and coronal reformations were also reviewed. A dose lowering technique was utilized a dhering to the principles of ALARA. COMPARISON STUDY: None. FINDINGS: Normal caliber thoracic aorta with no evidence for a dissection. The heart is normal in siz e. Multiple scattered filling defects seen within the segmental and subsegmental pulmonary arteries o f the bilateral upper and lower lobes consistent with acute pulmonary emboli. The main pulmonary demetrius janiya are patent. No evidence for right-sided heart strain at this time. The heart is normal in size. Trace left pleural effusion. No pericardial effusion. Normal thyroid gland. Limited views of the uppe r abdomen demonstrate a normal liver, spleen, and adrenal glands. Postoperative changes consistent wi th prior gastric bypass. There is elevation left hemidiaphragm. Normal esophagus. No mediastinal or h ilar lymphadenopathy. No acute fractures. The central airways are patent. A few bibasilar linear dens ities favor subsegmental atelectasis. No pneumothorax. Small wedge-shaped groundglass airspace opacit ies within the base of the lingula and left lower lobe likely representing pulmonary infarcts. IMPRESSION: 1. Bilateral segmental/subsegmental pulmonary emboli. No evidence for right-sided heart strain. 2. Trace left pleural effusion. 3. Small wedge-shaped groundglass airspace opacities within the left lung base likely represents pulm onary infarcts. 4. Additional findings as described above. ACT 112: Negative or not required by law. Electronically signed by: Kraig Daniels M.D. 11/10/2023 6:03 PM
[2023-11-10 18:14] LABS: Troponin I High Sensitivity 4.1 pg/ml (0-14)
[2023-11-10 18:44] LABS: Partial Thromboplastin Time 27 Seconds (21-31); Prothrombin Time 10.9 Seconds (9.0-12.0)
--- NOTE | 2023-11-10 19:08 | History & Physical Report ---
Date of Service November 10, 2023 Assessment & Plan (1) Bilateral pulmonary embolism: (2) Pulmonary infarct: (3) S/P panniculectomy: Plan This is a 43 year old F who has a significant PMH of gastric by pass, migraine and TUCKER who presents to ED secondary to chest pain and shoulder pain. --CT Chest CTA: 1. Bilateral segmental/subsegmental pulmonary emboli. No evidence for right-sided heart strain. Bilateral pulmonary embolism Pulmonary infarct Admit to PCU Continue heparin drip Toradol x 1 now for pain As needed Percocet for severe pain, Tylenol for mild pain Encourage incentive spirometry as able Lidocaine patch Consult pulmonology due to concern for infarct History of gastric bypass in 2009 Status post panniculectomy on 11/07/[address] Lopez, POD #3 She tolerated the procedure well Her hemoglobin is stable Discussed with Dr. Lopez regarding pulmonary embolism to make her aware patient status She states if there is any concern she is more than happy to come over and see patient, just send her a [place] text History of migraine Headache Continue nortriptyline Give Toradol x 1 now DVT prophylaxis: IV heparin Full code PCP: Dr. Keen Dispo: Admit to PCU Patient was seen and examined in collaboration with, Dr. Bernard, please see addendum Orders were placed by Faye Jules PA-C for training and teaching purposes. This was supervised by myself. She did not physically see the patient. A total of 76 minutes was spent coordinating, documenting, and providing care for this patient excluding time spent in the performance of separately billed services. This included personally viewing all current laboratories and imaging studies, medication reconciliation, outpatient chart review, and discussion with specialists. History of Present Illness Chief Complaint: chest pain and shoulder pain Primary Care Provider: Valeria Keen, This is a 43 year old F who has a significant PMH of gastric by pass, migraine and TUCKER who presents to ED secondary to chest pain and shoulder pain. Her son is at bedside who also helps elicit history. Of significance she underwent gastric bypass in 2009. She has been following with plastic surgery and on 10/10 underwent a panniculectomy. She tolerated the procedure well and her postop course was unremarkable. She was discharged to home. Last evening when lying in bed she started noticing left-sided chest pain. Her pain progressively got worse and she felt short of breath. She called her son who was also concerned that she was short of breath. She states that, "I am a mother so of course I waited to this morning to talk to my surgeon before coming in." After discussing her condition with the surgeon they recommended she seek ED for further evaluation. Currently she complains of pain with shallow inspiration and shortness of breath with conversation. When waiting in the waiting room she reports an episode of feeling dizzy secondary to significant abdominal pain. She did not take any medications prior to coming to ED and had to wait for a while. She feels that her pain caused her to be dizzy and nauseous. This is since resolved. She does currently have a headache. She has a history of migraines, but does not feel like this is migrainous. She moved her bowels this morning. In ED she remained hemodynamically stable. Her lab work was generally unremarkable. Her hemoglobin and hematocrit was normal. Chest CTA revealed segmental and subsegmental bilateral pulmonary emboli with concern for a left lower lobe pulmonary infarct. She is not requiring any oxygen supplementation. Allergies Allergy/AdvReac Type Severity Reaction Status Date / Time mometasone furoate AdvReac Severe NON STOP Verified 11/10/23 17:37 [From Nasonex] HEADACHES aspirin AdvReac Intermediate Gastrointestinal Verified 11/10/23 17:37 Upset diclofenac AdvReac Intermediate Diarrhea Verified 11/10/23 17:37 Home Medications Medication Instructions Recorded Confirmed Type linjyyoweo-eeuhonqaainsi-hyqwzjtu 1 tab PO Q4H PRN Migraine Headache 09/08/20 11/10/23 History 50 mg-325 mg-40 mg tablet calcium-vitamin D2-iron tablet 0 tab PO DAILY 09/08/20 11/10/23 History fluticasone propionate 50 2 spray intranasal HS 09/08/20 11/10/23 History mcg/actuation nasal spray,suspension magnesium oxide 400 mg (241.3 mg 400 mg PO DAILY 09/08/20 11/10/23 History magnesium) tablet nortriptyline 25 mg capsule 25 mg PO HS 09/08/20 11/10/23 History vit no.95-ferrous 1 tab PO DAILY 09/08/20 11/10/23 History fumarate 28 mg-folic acid 800 mcg tablet () folic acid 1 mg tablet 1 mg PO DAILY 07/14/23 11/10/23 History levocetirizine 5 mg tablet 5 mg PO HS 07/14/23 11/10/23 History medroxyprogesterone 150 mg/mL 0 mg IM UD 10/21/23 11/10/23 History intramuscular suspension oxycodone-acetaminophen 5 mg-325 1 tab PO Q4H PRN pain 3 days #18 10/31/23 11/10/23 Rx mg tablet (Percocet) tabs Past Med/Surg History Medical History Seasonal allergies Migraine average 2 per month Anxiety History of COVID-September 12, 2023 > home test, symptoms all resolved > mild symptoms just loss taste and smell Surgical History delivery delivered x1 Hx of gastric bypass 2009 Family History Other Alzheimer disease Diabetes Hypotonic sclerotic muscular dystrophy Stroke Social History Smoking Status: Former smoker Tobacco Type: Cigarettes Second Hand Exposure: Yes (as kid); Do You Dip or Chew Tobacco: No; Hx Alcohol Use: Yes Hx Substance Use: No Preferred Language: Luxembourgish Communication Ability: Effective Remote Computer Terminal Operator Required: No Beliefs That Will Affect Care: None Current Living Situation: Family Feels Safe at Home: Yes Assistive Devices: Glasses Review of Systems Review of Systems: All systems reviewed & are unremarkable except as noted in HPI & below Physical Exam Physical Exam: Constitutional: WD/WN, vitals as above, NAD, sitting up in bed, pleasant, conversing easily Head: Normocephalic, Atraumatic Eyes: PERRL, conjunctivae normal, anicteric sclerae ENMT: external ear and nose normal, oropharynx normal Neck: trachea midline, no thyromegaly normal visual inspection Respiratory: Shallow inspiratory effort secondary to pain, lungs otherwise clear , no wheeze, rales, rhonchi. Normal insp/exp effort, no accessory muscle use Cardiovascular: RRR, no murmur, no edema Vessels: no JVD or carotid bruit Chest: normal inspection of chest Abdomen:+ Panniculectomy incision, no surrounding erythema or open wound, [address] with mild serosanguineous drainage, abdominal binder in place Musculoskeletal: no cyanosis or clubbing, extremities motor strength 5/5 Skin: no rashes, warm and dry normal turgor Neurologic: PERRL, EOMI, accommodation nl, no face palsy, no dysarthria CN's II-XI intact bilaterally and moves all extremities Psychiatric: A+Ox3, euthymic affect Lymphatic: no cervical or axillary lymphadenopathy : deferred Results & Data Results & Data Vital Signs (Past 12 Hours) Vital Signs Temp Pulse Pulse Resp BP BP Pulse Ox 11/10/23 16:05 88 18 99/56 L 100 11/10/23 13:00 37 C 96 H 18 119/78 99 O2 Del Method 11/10/23 16:05 Room Air 11/10/23 13:00 Room Air Diagnostic Findings Chest CTA 11/10/23 17:18 CHEST CTA for PULMONARY ARTERIES CT DOSE: 748.44 mGy.cm HISTORY: Shortness of breath. PE TECHNIQUE: Multiaxial CT images of the chest were performed following the intravenous administration of contrast to evaluate the pulmonary arteries. 3D/Maximal intensity projection images were also obtained. Sagittal and coronal reformations were also reviewed. A dose lowering technique was utilized adhering to the principles of ALARA. COMPARISON STUDY: None. FINDINGS: Normal caliber thoracic aorta with no evidence for a dissection. The heart is normal in size. Multiple scattered filling defects seen within the segmental and subsegmental pulmonary arteries of the bilateral upper and lower lobes consistent with acute pulmonary emboli. The main pulmonary arteries are patent. No evidence for right-sided heart strain at this time. The heart is normal in size. Trace left pleural effusion. No pericardial effusion. Normal thyroid gland. Limited views of the upper abdomen demonstrate a normal liver, spleen, and adrenal glands. Postoperative changes consistent with prior gastric bypass. There is elevation left hemidiaphragm. Normal esophagus. No mediastinal or hilar lymphadenopathy. No acute fractures. The central airways are patent. A few bibasilar linear densities favor subsegmental atelectasis. No pneumothorax. Small wedge-shaped groundglass airspace opacities within the base of the lingula and left lower lobe likely representing pulmonary infarcts. IMPRESSION: 1. Bilateral segmental/subsegmental pulmonary emboli. No evidence for right- sided heart strain. 2. Trace left pleural effusion. 3. Small wedge-shaped groundglass airspace opacities within the left lung base likely represents pulmonary infarcts. 4. Additional findings as described above. ACT 112: Negative or not required by law. Electronically signed by: Kraig Daniels M.D. 11/10/2023 6:03 PM Medications Administered Medication List Discontinued Medications Sodium Chloride (Nss) 500 mls @ 999 mls/hr IV .Q31M ONE Stop: 11/10/23 17:48 Last Infusion: 11/10/23 17:56 Dose: Infused Documented By: Admin: 11/10/23 17:24 Dose: 999 mls/hr Documented By: NRB Ioversol (Optiray 320 125ml) 118 ml IV ONCE ONE Stop: 11/10/23 17:36 Last Admin: 11/10/23 17:35 Dose: 118 ml Documented By: JAMES Morphine Sulfate (Morphine Sulfate 4 Mg/Ml 1 Ml Carp\\Vial) 4 mg IV NOW STA Stop: 11/10/23 17:19 Last Admin: 11/10/23 17:25 Dose: 4 mg Documented By: NRB Ondansetron HCl (Ondansetron Inj 2 Mg/Ml 2 Ml Vial) 4 mg IV NOW STA Stop: 11/10/23 17:19 Last Admin: 11/10/23 17:24 Dose: 4 mg Documented By: NRB ECG Additional Comments: I have independently reviewed and interpreted patient's admitting EKG which revealed: NSR [address] or t wave change COVID-19 Results Results COVID-19 Adm Lab Results: RBC 4.30 M/uL (4.20-5.40) 11/10/23 WBC 10.56 K/ul (4.8-10.8) 11/10/23 Hgb 12.6 g/dl (12.0-16.0) 11/10/23 Hct 38.1 % (37.0-47.0) 11/10/23 Plt Count 285 K/uL (130-400) 11/10/23 Neutrophils (%) (Auto) 77.1 % 11/10/23 Lymphocytes (%) (Auto) 13.4 % 11/10/23 Monocytes # (Auto) 0.87 K/uL (0.11-0.59) H 11/10/23 Eosinophils # (Auto) 0.05 K/uL (0.00-0.50) 11/10/23 Immature Granulocyte % (Auto) 0.4 % 11/10/23 Neutrophils # (Auto) 8.14 K/uL (1.40-6.50) H 11/10/23 Lymphocytes # (Auto) 1.42 K/uL (1.20-3.40) 11/10/23 Monocytes # (Auto) 0.87 K/uL (0.11-0.59) H 11/10/23 Eosinophils # (Auto) 0.05 K/uL (0.00-0.50) 11/10/23 Basophils # (Auto) 0.04 K/uL (0.00-0.20) 11/10/23 Immature Granulocyte # (Auto) 0.04 K/uL (0.01-0.20) 4 Na 138 mmol/L (136-145) 11/10/23 K 4.1 mmol/L (3.5-5.1) 11/10/23 Cl 105 mmol/L (98-107) 11/10/23 CO2 26 mmol/L (21-32) 11/10/23 Anion Gap 7 (3-11) 11/10/23 BUN 10 mg/dl (6-23) 11/10/23 Creatinine 0.56 mg/dl (0.6-1.2) L 11/10/23 BUN/Creatinine Ratio 17.9 (10-20) 11/10/23 Glucose Level 107 mg/dl (70-99(Fasting)) H 11/10/23 Ca 9.0 mg/dl (8.6-10.3) 11/10/23 Total Bilirubin 0.5 mg/dl (0.2-1.0) 11/10/23 AST/SGOT 18 U/L (13-39) 11/10/23 ALT/SGPT 22 U/L (7-52) 11/10/23 Alkaline Phosphatase 63 U/L (34-104) 11/10/23 Total Protein 6.9 gm/dl (6.0-8.3) 11/10/23 Albumin 3.9 gm/dl (3.4-5.0) 11/10/23 Globulin 3.0 gm/dl (2.5-4.0) 11/10/23 Albumin/Globulin Ratio 1.3 (0.9-2) 11/10/23 PTT 27 Seconds (21-31) 11/10/23 INR 1.0 (0.9-1.1) 11/10/23 Code Status & VTE Plan Code Status FULL CODE Supervising Physician Co-Signing Physician Notes Patient was seen and examined with Lizett GRANT at bedside. Chart reviewed. Case discussed with her and agree with the documentation above with regards to HPI, PE and A/P.
[2023-11-10] MEDS: HEPARIN SODIUM/DEXTROSE 25,000 UNITS/500 ML BAG IV SCH (19:20)
[2023-11-10] MEDS: Heparin IV Adult Wt-Based Standard *NO* INITIAL Bolus Protocol IV STA (19:24)
[2023-11-10] MEDS: KETOROLAC TROMETHAMINE 15 MG/ML VIAL IV ONE (20:15)
[2023-11-10] MEDS ORDERED: ALUMINUM/MAGNESIUM SUSP 30 ML UDC PO PRN (21:21)
[2023-11-10] MEDS ORDERED: MAGNESIUM HYDROXIDE SUSP 30 ML UDC PO PRN (21:21)
[2023-11-10] MEDS ORDERED: POLYETHYLENE (MIRALAX) 17 GM PACK PO PRN (21:21)
[2023-11-10] MEDS ORDERED: ONDANSETRON INJ 2 MG/ML 2 ML VIAL IV PRN (21:21)
[2023-11-10] MEDS: NORTRIPTYLINE HCL 25 MG CAP PO SCH (22:19)
[2023-11-10] MEDS: CETIRIZINE HCL 10 MG TABLET PO SCH (22:19)
[2023-11-10] MEDS: FLUTICASONE PROPIONATE NA SPR 16 GM BTL SCH (22:20)
[2023-11-11 01:52] LABS: ANTI-Xa, UFH(UnfractionatedHep 0.28 IU/ml (0.3-0.7)
[2023-11-11] MEDS: oxyCODONE/ACETAMINOPHEN 5mg/325mg TAB PO PRN (09:03)
[2023-11-11] MEDS: LIDOCAINE 5% 1 PATCH TD SCH (09:05)
[2023-11-11 09:08] LABS: Basophils # (auto) 0.04 K/uL (0.00-0.20); Basophils % (auto) 0.7 %; Eosinophils % (auto) 1.7 %; Hematocrit (blood only) 36.5 % (37.0-47.0); Hemoglobin 12.1 g/dl (12.0-16.0); Immature Granulocytes # (auto) 0.02 K/uL (0.01-0.20); Immature Granulocytes % (auto) 0.3 %; Lymphocytes # (auto) 1.42 K/uL (1.20-3.40); Lymphocytes % (auto) 23.7 %; Mean Corpuscular Hemoglobin 29.4 pg (25.0-34.0); Mean Corpuscular Hgb Conc 33.2 g/dL (32.0-36.0); Mean Corpuscular Volume 88.8 fL (80.0-100.0); Mean Platelet Volume 8.9 fL (9.4-12.4); Monocytes # (auto) 0.49 K/uL (0.11-0.59); Monocytes % (auto) 8.2 %; Neutrophils # (auto) 3.91 K/uL (1.40-6.50); Neutrophils % (auto) 65.4 %; Platelet Count 280 K/uL (130-400); RDW Coefficient of Variation 12.5 % (11.5-14.5); RDW Standard Deviation 41.2 fL (36.4-46.3); Red Blood Count 4.11 M/uL (4.20-5.40); White Blood Count 5.98 K/ul (4.8-10.8)
[2023-11-11 09:13] LABS: BUN Creatinine Ratio 18.2 (10-20); Calcium 8.7 mg/dl (8.6-10.3); Est GFR (Non-African American) 116.5 ml/min; Potassium 4.2 mmol/L (3.5-5.1)
[2023-11-11 09:19] LABS: ANTI-Xa, UFH(UnfractionatedHep 0.36 IU/ml (0.3-0.7)
--- NOTE | 2023-11-11 14:04 | Pulmonary Consultation ---
Date of Consultation November 11, 2023 Assessment & Plan (1) Bilateral pulmonary embolism: (2) Pulmonary infarct: (3) Family history of CVA: Plan 43-year-old female with a recent history of panniculectomy, family history of CVA in her sister and [place] at an early age, history of gastric bypass and history of congenital nystagmus who presented to the hospital 11/10/2023 due to sudden shortness of breath and pain in her chest. Found to have supplemental pulmonary emboli with small pulmonary infarcts at the bases of the lungs. Her chest pain has markedly improved along with her shortness of breath since yesterday. No specific intervention is required for the pulmonary infarcts. Would recommend repeating a CT chest with contrast in 3 to 4 months to ensure that the infarcts are resolved. Recommend hypercoagulable workup (factor V Leiden mutation, homocystine level and prothrombin mutation ordered) and heme- onc evaluation as an outpatient given her family history of miscarriages and CVA at an early age in her sister. If she is found to have a hypercoagulable condition, would recommend lifelong anticoagulation. Otherwise, if no hypercoagulability disorder is identified, would consider this a provoked VTE related to her recent panniculectomy. Recommend transitioning to DOAC tomorrow. Will also obtain an ultrasound of her lower extremites to rule out lower extremity VTE. Additionally, will obtain baseline echocardiogram. She had nonspecific ST segment changes on her EKG from 09/10/2023. Troponin was negative on admission. Thank you for the consult. Will follow with you. Anticipate likely discharge tomorrow if no evidence of bleeding and symptoms continue to resolve. History of Present Illness Reason for Consultation: Pulmonary embolism Attending Physician: Amos Soto MD History of Present Illness 43-year-old female with a history of congenital nystagmus, legal blindness, pamela martin bypass and recent panniculectomy who presented to the ER due to acute shortness of breath and pain in her chest. She had a CTA 11/10/2023 which revealed bilateral segmental and subsegmental pulmonary emboli. Trace left effusion and small wedge-shaped groundglass airspace opacity within the left lung base was noted. Patient notes that her pain is subsiding and her shortness of breath have substantially improved today. She is currently on a heparin infusion. She denies any prior history of VTE. She denies any prior history of miscarriage. She does note a family history of miscarriage and a sister who had a CVA and [place] before the age of 40. Her sister is currently on lifelong anticoagulation. Patient has been saturating well on room air and able to ambulate without difficulty. Patient is a lifelong non-smoker. She is currently unemployed and on disability due to legal blindness. She has an 18-year-old son. She is originally is from [place] and moved to [place] 18 years ago. Allergies Allergy/AdvReac Type Severity Reaction Status Date / Time mometasone furoate AdvReac Severe NON STOP Verified 11/10/23 17:37 [From Nasonex] HEADACHES aspirin AdvReac Intermediate Gastrointestinal Verified 11/10/23 17:37 Upset diclofenac AdvReac Intermediate Diarrhea Verified 11/10/23 17:37 Home Medications Medication Instructions Recorded Confirmed Type ydtugoqqjg-wjhjikbiqivry-estzjtuc 1 tab PO Q4H PRN Migraine Headache 09/08/20 History 50 mg-325 mg-40 mg tablet calcium-vitamin D2-iron tablet 0 tab PO DAILY 09/08/20 11/10/23 History fluticasone propionate 50 2 spray intranasal HS 09/08/20 11/10/23 History mcg/actuation nasal spray,suspension magnesium oxide 400 mg (241.3 mg 400 mg PO DAILY 09/08/20 11/10/23 History magnesium) tablet nortriptyline 25 mg capsule 25 mg PO HS 09/08/20 11/10/23 History vit no.95-ferrous 1 tab PO DAILY 09/08/20 11/10/23 History fumarate 28 mg-folic acid 800 mcg tablet () folic acid 1 mg tablet 1 mg PO DAILY 07/14/23 11/10/23 History levocetirizine 5 mg tablet 5 mg PO HS 07/14/23 11/10/23 History medroxyprogesterone 150 mg/mL 0 mg IM UD 10/21/23 11/10/23 History intramuscular suspension oxycodone-acetaminophen 5 mg-325 1 tab PO Q4H PRN pain 3 days #18 10/31/23 11/10/23 Rx mg tablet (Percocet) tabs Patient History Medical History (Updated 11/11/23 @ 13:58 by Nehemias Zabala MD) Family history of CVA Seasonal allergies Migraine average 2 per month Anxiety History of COVID-19 September 12, 2023 > home test, symptoms all resolved > mild symptoms just loss taste and smell Surgical History (Updated 11/11/23 @ 00:41 by Neftali Saucedo MD) delivery delivered x1 Hx of gastric bypass 2010 Family History Other Alzheimer disease Diabetes Hypotonic sclerotic muscular dystrophy Stroke Social History Smoking Status: Never smoker Tobacco Type: Cigarettes Second Hand Exposure: Yes (as kid); Do You Dip or Chew Tobacco: No; Hx Alcohol Use: Yes Alcohol type: beer and wine Hx Substance Use: No Preferred Language: Kiswahili Communication Ability: Effective Business Management Consultant Required: No Beliefs That Will Affect Care: None Current Living Situation: Family Other Information That Helps Us Care for You: No Feels Safe at Home: Yes Safety Concerns: Feels Safe At This Time Assistive Devices: None Review of Systems Review of Systems: All systems reviewed & are unremarkable except as noted in HPI & below Physical Exam Physical Exam: Constitutional: Patient appears to be of their stated age. Patient is in no apparent distress. Patient is well-developed. Eyes: Pupils are equal round and reactive to light. Conjunctivae are normal. Anicteric sclera. Ears nose, mouth and throat: No perioral cyanosis Neck: Trachea is midline. Visual inspection is normal. Respiratory: Clear to auscultation bilaterally. No use of accessory muscles. No significant clubbing noted. Cardiovascular: Regular rate and rhythm. No murmurs. No edema. Gastrointestinal: Normal bowel sounds, soft, nontender and nondistended. No hepatosplenomegaly noted. QUETA drains noted. Musculoskeletal: No cyanosis. Patient is able to move all extremities. Strength is 5 out of 5 in the upper and lower extremities. Skin: No rashes, warm dry and intact. Neurologic: No obvious focal neurological deficits seen. Psychiatric: Alert and oriented x3 with a euthymic affect. Results & Data Results & Data Vital Signs (Past 12 Hours) Vital Signs Temp Pulse Pulse Resp BP BP Pulse Ox 11/11/23 11:28 36.8 C 88 18 101/67 98 11/11/23 10:10 74 11/11/23 09:20 11/11/23 07:27 37.2 C 75 18 97/66 L 98 11/11/23 03:44 36.9 C 93 H 18 92/54 L 97 O2 Del Method 11/11/23 11:28 Room Air 11/11/23 10:10 11/11/23 09:20 Room Air 11/11/23 07:27 Room Air 11/11/23 03:44 Room Air PG Care Time/CCT Total # of Minutes Spent Total Time Spent with Patient: Total time spent is greater than 50% in coordination of care (as documented) at patient's floor/unit and/or counseling patient: Coding Level of Care Code 02767 IN/OBS CONSULT LVL 4,60M Diagnoses Bilateral pulmonary embolism I26.99 Pulmonary infarct I26.99 Family history of CVA Z82.3
--- NOTE | 2023-11-11 19:15 | Hospitalist Progress Note ---
Date of Service November 11, 2023 Assessment & Plan (1) Bilateral pulmonary embolism: (2) Pulmonary infarct: (3) S/P panniculectomy: Plan Per admitting service notes with addendum: This is a 43 year old F who has a significant PMH of gastric by pass, migraine and TUCKER who presents to ED secondary to chest pain and shoulder pain. --CT Chest CTA: 1. Bilateral segmental/subsegmental pulmonary emboli. No evidence for right-sided heart strain. Bilateral pulmonary embolism Pulmonary infarct Admit to PCU Continue heparin drip Toradol x 1 now for pain As needed Percocet for severe pain, Tylenol for mild pain Encourage incentive spirometry as able Lidocaine patch Consult pulmonology due to concern for infarct 11/10 Remains hemodynamically stable On room air On IV heparin Pulmonary service consulted Hypercoagulable workup, lower extremity Doppler, echocardiogram ordered Plan to transition to oral anticoagulation tomorrow History of gastric bypass in 2009 Status post panniculectomy on 11/07/[address] Lopez, POD #3 She tolerated the procedure well Her hemoglobin is stable Discussed with Dr. Lopez regarding pulmonary embolism to make her aware patient status She states if there is any concern she is more than happy to come over and see patient, just send her a [place] text 11/10 Wound healing well Follow-up with Dr. Lopez as scheduled History of migraine Headache Continue nortriptyline Give Toradol x 1 now DVT prophylaxis: IV heparin Full code PCP: Dr. Keen Dispo: Possible discharge tomorrow if medically stable, cleared by pulmonology service Admission and Anticipated Discharge Date Admission Date: November 10, 2023 Subjective Follow-up for acute bilateral PE, etc. Seen with SHAI Lowery at the bedside throughout whole encounter Resting in bed, sitting up, comfortable, good spirits States she feels better compared to admission Chest pain is improving Breathing also improving Has some discomfort over the surgical incision sites Otherwise no other new symptom Review of Systems Review of Systems: all noted and negative except for above Physical Exam Physical Exam: General- oriented x 3, not in distress, speaks in sentences with no effort or accessory muscle use Eyes- anicteric Neck- no JVD Lungs- clear breath sounds bilaterally, no rales/wheezes Heart- normal rate, regular rhythm; no murmurs Abdomen- normal bowel sounds, nondistended, soft, nontender Surgical incision site: Wound healing well, well opposed, no bleeding or discharge, no surrounding erythema warmth or tenderness QUETA drains in place, with serosanguineous output, minimal Extremities- no pretibial edema, no calf tenderness Neuro- alert, oriented x 3; no gross focal neurologic deficits Skin- warm & dry Results & Data Results & Data Vital Signs (Past 12 Hours) Vital Signs Temp Pulse Pulse Resp BP BP Pulse Ox 11/11/23 16:36 101 H 11/11/23 15:53 36.6 C 89 18 101/66 98 11/11/23 11:28 36.8 C 88 18 101/67 98 11/11/23 10:10 74 11/11/23 09:20 11/11/23 07:27 37.2 C 75 18 97/66 L 98 O2 Del Method 11/11/23 16:36 11/11/23 15:53 Room Air 11/11/23 11:28 Room Air 11/11/23 10:10 11/11/23 09:20 Room Air 11/11/23 07:27 Room Air all noted and reviewed including below
--- NOTE | 2023-11-11 22:39 | Ultrasound Report ---
ULTRASOUND BILATERAL LOWER EXTREMITY VENOUS CLINICAL HISTORY: Pulmonary embolus. COMPARISON STUDY: No priors. TECHNIQUE: Real-time, grayscale, and color Doppler sonography of the deep veins of the right and left lower extremity was performed from the inguinal crease to the calf. Compression and augmentation wer e utilized. FINDINGS: There is no sonographic evidence of deep venous thrombosis identified in the right or left lower extremity. The common femoral, superficial femoral, and popliteal veins are patent and normally compressible bilaterally. The greater saphenous vein and the profunda femoris vein at the junction w ith the common femoral vein are clear in both legs. The visualized calf veins are patent bilaterally. IMPRESSION: There is no sonographic evidence of deep venous thrombosis identified in the right or lef t lower extremity. ACT 112: Negative or not required by law. Electronically signed by: Augustine Wood M.D. 11/11/2023 10:38 PM
[2023-11-12 05:05] LABS: Basophils # (auto) 0.05 K/uL (0.00-0.20); Basophils % (auto) 0.7 %; Eosinophils # (auto) 0.25 K/uL (0.00-0.50); Eosinophils % (auto) 3.7 %; Hematocrit (blood only) 32.6 % (37.0-47.0); Hemoglobin 10.8 g/dl (12.0-16.0); Immature Granulocytes # (auto) 0.02 K/uL (0.01-0.20); Immature Granulocytes % (auto) 0.3 %; Lymphocytes # (auto) 2.14 K/uL (1.20-3.40); Lymphocytes % (auto) 31.8 %; Mean Corpuscular Hgb Conc 33.1 g/dL (32.0-36.0); Mean Corpuscular Volume 87.6 fL (80.0-100.0); Mean Platelet Volume 8.7 fL (9.4-12.4); Monocytes # (auto) 0.61 K/uL (0.11-0.59); Monocytes % (auto) 9.1 %; Neutrophils # (auto) 3.66 K/uL (1.40-6.50); Neutrophils % (auto) 54.4 %; Platelet Count 275 K/uL (130-400); RDW Coefficient of Variation 12.4 % (11.5-14.5); RDW Standard Deviation 39.9 fL (36.4-46.3); Red Blood Count 3.72 M/uL (4.20-5.40); White Blood Count 6.73 K/ul (4.8-10.8)
[2023-11-12 05:10] LABS: ANTI-Xa, UFH(UnfractionatedHep 0.31 IU/ml (0.3-0.7)
[2023-11-12 05:31] LABS: BUN Creatinine Ratio 19.6 (10-20); Calcium 8.2 mg/dl (8.6-10.3); Creatinine Clr Calc Pharmacy 153.2 ml/min; Est GFR (African American) 138.4 ml/min; Est GFR (Non-African American) 119.4 ml/min; Potassium 4.1 mmol/L (3.5-5.1)
[2023-11-12] MEDS: APIXABAN 5 MG TABLET PO SCH (10:23)
[2023-11-12] MEDS: HEPARIN--STOP ORDER ONE (10:25)
--- NOTE | 2023-11-12 10:58 | Pulmonology Progress Note ---
Date of Service November 12, 2023 Assessment & Plan (1) Bilateral pulmonary embolism: (2) Pulmonary infarct: (3) Family history of CVA: Plan 43-year-old female with a recent history of panniculectomy, family history of CVA in her sister and [place] at an early age, history of gastric bypass and history of congenital nystagmus who presented to the hospital 11/10/2023 due to sudden shortness of breath and pain in her chest. Found to have supplemental pulmonary emboli with small pulmonary infarcts at the bases of the lungs. Her chest pain has markedly improved along with her shortness of breath since yesterday. No specific intervention is required for the pulmonary infarcts. Would recommend repeating a CT chest with contrast in 3 to 4 months to ensure that the infarcts are resolved. Recommend hypercoagulable workup (factor V Leiden mutation, homocystine level and prothrombin mutation ordered) and heme- onc evaluation as an outpatient given her family history of miscarriages and CVA at an early age in her sister. If she is found to have a hypercoagulable condition, would recommend lifelong anticoagulation. Otherwise, if no hypercoagulability disorder is identified, would consider this a provoked VTE related to her recent panniculectomy. Ultrasound lower extremities negative for DVT. Echo with unremarkable findings. No pulmonary tension. Patient okay to discharge home today with [facility]. Discussed with hospitalist and bedside nurse. Patient satisfied with care. Admission and Anticipated Discharge Date Admission Date: November 10, 2023 Subjective Patient without any significant complaints. Able to ambulate the hallways without shortness of breath. Very minimal chest pain today. Using incentive spirometer. Eager to go home. She was transitioned to [facility]. Review of Systems Review of Systems: All systems reviewed & are unremarkable except as noted in HPI & below Physical Exam Physical Exam: Constitutional: Patient appears to be of their stated age. Patient is in no apparent distress. Patient is well-developed. Eyes: Pupils are equal round and reactive to light. Conjunctivae are normal. Anicteric sclera. Ears nose, mouth and throat: No perioral cyanosis Neck: Trachea is midline. Visual inspection is normal. Respiratory: Clear to auscultation bilaterally. No use of accessory muscles. No significant clubbing noted. Cardiovascular: Regular rate and rhythm. No murmurs. No edema. Gastrointestinal: Normal bowel sounds, soft, nontender and nondistended. No hepatosplenomegaly noted. QUETA drains noted. Musculoskeletal: No cyanosis. Patient is able to move all extremities. Strength is 5 out of 5 in the upper and lower extremities. Skin: No rashes, warm dry and intact. Neurologic: No obvious focal neurological deficits seen. Horizontal nystagmus noted Psychiatric: Alert and oriented x3 with a euthymic affect. Results & Data Results & Data Vital Signs (Past 12 Hours) Vital Signs Temp Pulse Pulse Resp BP Pulse Ox O2 Del Method 11/12/23 07:25 36.9 C 84 18 95/65 L 97 Room Air 11/12/23 03:15 36.5 C 82 16 102/67 97 Room Air 11/12/23 00:00 91 H 11/11/23 23:11 36.8 C 84 16 98/66 L 98 Room Air PG Care Time/CCT Total # of Minutes Spent Total Time Spent with Patient: Total time spent is greater than 50% in coordination of care (as documented) at patient's floor/unit and/or counseling patient: Coding Level of Care Code 65660 SUB INP/OBS CARE 2/35MIN Diagnoses Bilateral pulmonary embolism I26.99 Pulmonary infarct I26.99 Family history of CVA Z82.3
[2023-11-12] MEDS: ACETAMINOPHEN 325 MG TAB PO PRN (11:30)
--- NOTE | 2023-11-13 21:22 | Electrocardiogram Report ---
Test Reason : Blood Pressure : / mmHG Vent. Rate : 096 BPM Atrial Rate : 096 BPM P-R Int : 124 ms QRS Dur : 074 ms QT Int : 330 ms P-R-T Axes : 077 058 064 degrees QTc Int : 416 ms Normal sinus rhythm Nonspecific ST abnormality Abnormal ECG No previous ECGs available Confirmed by Pardeep Baez ([id number]) on 11/13/2023 9:22:37 PM Referred By: Confirmed By:Pardeep Baez
== END 2023-11-12 12:58 | disposition home or self-care (01) | DRG 176 ==
LOC: ED 12:55 → SUATTDRO 19:13 → 4W 19:13